=== PATIENT | female | born 1960 | race Caucasian/White ===

== ENCOUNTER 2017-04-06 09:31 | Emergency (ER) | payer SELFPAY ==
[~2017-04-06] VITALS: Ht 172.7 cm; Wt 76.0 kg
[~2017-04-06 09:31] MED LIST: QUET50TA PO; XANA1TAB6 PO
[2017-04-06 09:37] VITALS: BP 122/81; PULSE 77; RESP 16; TEMP 98.5; O2SAT 98
[2017-04-06] MEDS ORDERED: AUGM875T3 PO (09:57)
[2017-04-06] MEDS ORDERED: ULTR50TA5 PO (09:57)
--- NOTE | 2017-04-06 10:00 | PD ---
HPI Chief Complaint: Injury Time Seen by Provider: 09:43 Travel History International Travel<30 days: No Contact w/Intl Traveler<30days: No Traveled to known affect area: No History of Present Illness HPI YESTERDAY WHILE SHOWING A PROPERTY, A CLOCK FELL AND EDGE OF IT LANDED ON BRIDGE OF NOSE, GOT A LACERATION/CUT BUT DECIDED NOT TO COME IN, DECIDES TO COME IN TODAY, NO ACTIVE BLEEDING, AREA CUT COVERED IN NATURAL CLOT AND HEALING PROCESS HAS BEGUN (CUT OVER 12 HOURS WILL NOT CLOSE) PFSH Past Medical History Anxiety: Yes Insomnia: Yes ?: Not Tubal Ligation: Yes Past Surgical History Other Surgery: Yes (cervical spine fusion) Social History Alcohol Use: Yes (occ) Tobacco Use: No Substance Use: No (PT DENIES DRUG USE, OCC ALCOHOL) Allergies-Medications (Allergen,Severity, Reaction): Coded Allergies: No Known Allergies (Unverified , 04/06/17) Reported Meds & Prescriptions Reported Meds & Active Scripts Active Review of Systems Except as stated in HPI: all other systems reviewed are Neg Physical Exam Narrative GENERAL: SKIN: Warm and dry. 4MM LAC AT TOP OF BRIDGE OF NOSE, MILD ERYTHEMA AROUND WOUND'S EDGE, NO STEPOFF, NO CREPITUS, NO ECHYMOSIS HEAD: Atraumatic. Normocephalic. EYES: Pupils equal and round. No scleral icterus. No injection or drainage. ENT: No nasal bleeding or discharge. Mucous membranes pink and moist. NECK: Trachea midline. No JVD. CARDIOVASCULAR: Regular rate and rhythm. RESPIRATORY: No accessory muscle use. Clear to auscultation. Breath sounds equal bilaterally. GASTROINTESTINAL: Abdomen soft, non-tender, nondistended. MUSCULOSKELETAL: Extremities without clubbing, cyanosis, or edema. No obvious deformities. NEUROLOGICAL: Awake and alert. No obvious cranial nerve deficits. Motor grossly within normal limits. Five out of 5 muscle strength in the arms and legs. Normal speech. PSYCHIATRIC: Appropriate mood and affect; insight and judgment normal. Data Data Last Documented VS Vital Signs Date Time Temp Pulse Resp B/P Pulse Ox O2 Delivery O2 Flow Rate FiO2 04/06/17 09:37 98.5 77 16 122/81 98 MDM Medical Decision Making Medical Screen Exam Complete: Yes Emergency Medical Condition: Yes Medical Record Reviewed: Yes Differential Diagnosis CONTUSION V NASAL FX V LACERATION V EARLY CELLULITIS Narrative Course PATIENT TOLERATED CARE WELL, NO ADDITIONAL INJURIES NOTED ON EXAM, EXPLAINED ALLOWING LAC TO REPAIR BY SECONDARY INTENTION AND DERMABOND FOR PROTECTIVE SURFACE ONLY WITH PROPHYLACTIC ABX DUE TO LIGHT ERYTHEMATOUS RING AT WOUND EDGES Procedures Procedure Narrative AREA AT BRIDGE OF NOSE: CLEANED IN NL STERILE WAY, IRRIGATED WITH STERILE SALINE, DRIED WITH GAUZE AND COVERED WITH DERMABOND. TOLERATED WELL, NO BLEEDING, NO SEPTAL HEMATOMA AND NO GROSS DEVIATION/DEFORMITY OF NASAL BONES Diagnosis Primary Impression: NASAL LACERATION S/P DERMABOND Scripts Amoxicillin-Clavulanate (Augmentin)875-125 Mg Tab1 Tab PO BID #10 TAB Prov:Kirk Ruiz MD 04/06/17 Tramadol (Ultram)50 Mg Tab50 Mg PO Q4H PRN (PAIN) #28 TAB Prov:Kirk Ruiz MD 04/06/17 Disposition: 01 DISCHARGE HOME Condition: Stable Kirk Ruiz MD Apr 06, 2017 10:00
== END 2017-04-06 10:15 | disposition home or self-care (01) ==
LOC: PHEFT 09:31
DX: S01.21XA Laceration without foreign body of nose, initial encounter (principal); W20.8XXA Other cause of strike by thrown, projected or falling object, initial encounter
CPT/HCPCS: 12011